=== PATIENT | female | born 1970 | race Caucasian/White ===

== ENCOUNTER → 2016-10-06 19:48 | Outpatient (CLI) | payer BC | END | disposition home or self-care (01) | LOC: D.MAMMO 15:30 | DX: Z12.31 Encounter for screening mammogram for malignant neoplasm of breast (principal) ==

== ENCOUNTER → 2017-10-07 07:51 | Outpatient (CLI) | payer BC | END | disposition home or self-care (01) | LOC: D.MAMMO 07:51 | DX: Z12.31 Encounter for screening mammogram for malignant neoplasm of breast (principal) ==

== ENCOUNTER → 2017-10-13 15:44 | Outpatient (CLI) | payer BC | END | disposition home or self-care (01) | LOC: D.MAMMO 12:00 | DX: R92.8 Other abnormal and inconclusive findings on diagnostic imaging of breast (principal) ==

== ENCOUNTER 2018-11-03 08:00 | Outpatient (CLI) | payer BC | END 2018-11-03 23:59 | disposition home or self-care (01) | LOC: D.MAMMO 08:00 | PROVIDERS: ATTEND Family Medicine | DX: Z12.31 Encounter for screening mammogram for malignant neoplasm of breast (principal) ==

== ENCOUNTER 2019-12-19 09:15 | Outpatient (CLI) | payer BC | END 2019-12-19 09:16 | disposition home or self-care (01) | LOC: D.MAMMO 09:15 | PROVIDERS: ATTEND Family Medicine | DX: Z12.31 Encounter for screening mammogram for malignant neoplasm of breast (principal) ==

== ENCOUNTER 2020-01-08 14:30 | Outpatient (CLI) | payer BC | END 2020-01-08 15:30 | disposition home or self-care (01) | LOC: D.MAMMO 14:30 | PROVIDERS: ATTEND Family Medicine | DX: R92.8 Other abnormal and inconclusive findings on diagnostic imaging of breast (principal) ==

== ENCOUNTER 2020-01-18 08:00 | Outpatient (CLI) | payer BC | END 2020-01-18 08:15 | disposition home or self-care (01) | LOC: D.MAMMO 08:00 | PROVIDERS: ATTEND Family Medicine | DX: R92.8 Other abnormal and inconclusive findings on diagnostic imaging of breast (principal) ==